=== PATIENT | male | born 1955 | race American Indian/Alaskan Native ===

== ENCOUNTER 2017-03-23 07:36 | Emergency (ER) | payer BC ==
[2017-03-23 08:38] LABS: Basophils % (Auto) 0.4 % (0.0-1.8); Eosinophils % (Auto) 1.2 % (0.0-4.3); Hematocrit 36.4 % (35.5-45.6); Hemoglobin 11.4 gm/dl (11.8-15.2); Mean Corpuscular HGB Conc 31 % (32-34); Mean Corpuscular Volume 78 fl (84-94); Platelet Count 208 K/mm3 (140-440); Red Blood Count 4.69 M/mm3 (3.65-5.03); Red Cell Distribution Width 15.8 % (13.2-15.2); White Blood Count 9.2 K/mm3 (4.5-11.0)
[2017-03-23 08:40] LABS: Mean Corpuscular Hemoglobin 24 pg (28-32)
[2017-03-23 08:46] LABS: Anion Gap 23 mmol/L; BUN/Creatinine Ratio 13.57; Blood Urea Nitrogen 19 mg/dL (9-20); Calcium 8.4 mg/dL (8.4-10.2); Carbon Dioxide 20 mmol/L (22-30); Chloride 99.2 mmol/L (98-107); Glucose 267 mg/dL (75-100); Potassium 3.4 mmol/L (3.6-5.0); Sodium 139 mmol/L (137-145)
[2017-03-23] MEDS ORDERED: NACL 0.9% 1000 ML 1,000 ML IV ONE (11:18)
[2017-03-23] MEDS ORDERED: K-DUR PO ONE (11:19)
[2017-03-23] MEDS ORDERED: TORADOL IV ONE (11:22)
[2017-03-23] MEDS ORDERED: ULTRAM PO ONE (11:22)
[2017-03-23] MEDS ORDERED: FLEXERIL PO ONE (11:33)
--- NOTE | 2017-03-23 11:34 | Emergency Department Report ---
ED Dizziness HPI - General Chief Complaint: Dizziness Stated Complaint: LBS Time Seen by Provider: 03/23/17 11:11 Source: patient Mode of arrival: Wheelchair Limitations: No Limitations - History of Present Illness Initial Comments: 61-year-old male with a past medical history hypertension and non-insulin- dependent diabetes presents to the hospital complains of dizziness and back pain. Patient has had intermittent lower back pain for the last week. He has recently been outside trying to cut down a falling tree for the past week. Pain aching, is in the lower back, moderate, worse with movement. Taken ibuprofen and muscle relaxant with partial relief. Denies any weakness, numbness, or urinary incontinence. Patient woke up at 6 AM complaining of lightheadedness with standing. Patient states he has been eating and drinking appropriately and denies nausea, vomiting, diarrhea, melena, hematochezia, headache, chest pain, or shortness of breath. He's been compliant with his lisinopril/hydrochlorothiazide, metformin, and glipizide. PMD: [facility]. - Related Data Home Medications Medication Instructions Recorded Confirmed Last Taken Lisinopril/Hydrochlorothiazide 1 tab PO DAILY 03/23/17 03/23/17 03/21/17 Previous Rx's Medication Instructions Recorded Last Taken Type Ibuprofen [Motrin] 800 mg PO Q8HR PRN #30 tablet 03/23/17 Unknown Rx Metaxalone [Skelaxin] 800 mg PO TID PRN #20 tab 03/23/17 Unknown Rx Potassium Chloride [K-Dur] 20 meq PO QDAY #3 tablet 03/23/17 Unknown Rx traMADol [Ultram 50 MG tab] 50 mg PO Q6HR PRN #20 tablet 03/23/17 Unknown Rx Allergies Allergy/AdvReac Type Severity Reaction Status Date / Time No Known Allergies Allergy Verified 03/23/17 07:54 ED Review of Systems ROS: Stated complaint: LBS Other details as noted in HPI Comment: All other systems reviewed and negative Other: Constitutional: No fevers chills Eyes: No eye pain visual changes ENT: No ear pain or throat pain Neck: Denies pain Respiratory: Denies cough wheezing shortness of breath Cardiovascular: Denies chest pain, palpitations, syncope GI: Denies abdominal pain, nausea, vomiting, diarrhea : Denies dysuria, urinary frequency, or urgency Musculoskeletal: Per HPI Skin: Denies rash, lesions, erythema Neurologic: Denies headache, numbness, weakness Psychiatric: Denies suicidal ideation, hallucinations ED Past Medical Hx - Past Medical History Hx Diabetes: Yes Additional medical history: recent back injury - Surgical History Additional Surgical History: left shoulder surgery. laparoscopy - Social History Smoking Status: Never Smoker Substance Use Type: Alcohol - Medications Home Medications: Home Medications Medication Instructions Recorded Confirmed Last Taken Type Ibuprofen [Motrin] 800 mg PO Q8HR PRN #30 tablet 03/23/17 Unknown Rx Lisinopril/Hydrochlorothiazide 1 tab PO DAILY 03/23/17 03/23/17 03/21/17 History Metaxalone [Skelaxin] 800 mg PO TID PRN #20 tab 03/23/17 Unknown Rx Potassium Chloride [K-Dur] 20 meq PO QDAY #3 tablet 03/23/17 Unknown Rx traMADol [Ultram 50 MG tab] 50 mg PO Q6HR PRN #20 tablet 03/23/17 Unknown Rx ED Physical Exam - General Limitations: No Limitations - Other Other exam information: General: No limitations, patient is alert in no acute distress Head exam: Atraumatic, normocephalic Eyes exam: Normal appearance ENT: Dry mucous membrane Neck exam: Normal inspection, full range of motion, no meningismus nontender Respiratory exam: Clear to auscultation bilateral, no wheezes, rales, crackles Cardiovascular: Normal rate and rhythm, normal heart sounds Abdomen: Soft, nondistended, and nontender, with normal bowel sounds, no rebound, or guarding Extremity: Full range of motion normal inspection no deformity Back: Normal Inspection, full range of motion, lower lumbar tenderness is at the lumbar sacral area bilateral paraspinal muscles. No midline tenderness Neurologic: Alert, oriented x3, cranial nerves intact, no motor or sensory deficit Psychiatric: normal affect, normal mood Skin: Warm, dry, intact ED Course Vital Signs 03/23/17 03/23/17 07:57 11:31 Temperature 97.4 F L Pulse Rate 100 H Pulse Rate [ 90 Lying] Pulse Rate [ 91 H Sitting] Pulse Rate [ 95 H Standing] Respiratory 17 Rate Blood Pressure 171/84 Blood Pressure 115/70 [Lying] Blood Pressure 117/71 [Sitting] Blood Pressure 112/69 [Standing] O2 Sat by Pulse 95 Oximetry - Reevaluation(s) Reevaluation #1: 06/11/17 13:17 Patient reports feeling better after IV hydration. Also received by mouth potassium, tramadol, Toradol, and Flexeril for pain. ED Medical Decision Making - Lab Data Result diagrams: 03/23/17 08:04 03/23/17 08:04 Lab Results 03/23/17 03/23/17 03/23/17 Range/Units 07:37 08:04 08:04 WBC 9.2 (4.5-11.0) K/mm3 RBC 4.69 (3.65-5.03) M/mm3 Hgb 11.4 L (11.8-15.2) gm/dl Hct 36.4 (35.5-45.6) % MCV 78 L (84-94) fl MCH 24 L (28-32) pg MCHC 31 L (32-34) % RDW 15.8 H (13.2-15.2) % Plt Count 208 (140-440) K/mm3 Lymph % (Auto) 25.9 (13.4-35.0) % [place] % (Auto) 7.3 (0.0-7.3) % Eos % (Auto) 1.2 (0.0-4.3) % Baso % (Auto) 0.4 (0.0-1.8) % Lymph # 2.4 (1.2-5.4) K/mm3 [place] # 0.7 (0.0-0.8) K/mm3 Eos # 0.1 (0.0-0.4) K/mm3 Baso # 0.0 (0.0-0.1) K/mm3 Seg Neutrophils % 65.2 (40.0-70.0) % Seg Neutrophils # 6.0 (1.8-7.7) K/mm3 Sodium 139 (137-145) mmol/L Potassium 3.4 L (3.6-5.0) mmol/L Chloride 99.2 (98-107) mmol/L Carbon Dioxide 20 L (22-30) mmol/L Anion Gap 23 mmol/L BUN 19 (9-20) mg/dL Creatinine 1.4 (0.8-1.5) mg/dL Estimated GFR > 60 ml/min BUN/Creatinine Ratio 13.57 % Glucose 267 H (75-100) mg/dL POC Glucose 219 H (70-105) Calcium 8.4 (8.4-10.2) mg/dL Magnesium (1.7-2.3) mg/dL Troponin T < 0.010 (0.00-0.029) ng/mL Urine Color (Yellow) Urine Turbidity (Clear) Urine pH (5.0-7.0) Ur Specific [place] (1.003-1.030) Urine Protein (Negative) mg/dL Urine Glucose (UA) (Negative) mg/dL Urine Ketones (Negative) mg/dL Urine Blood (Negative) Urine Nitrite (Negative) Urine Bilirubin (Negative) Urine Urobilinogen (<2.0) mg/dL Ur Leukocyte Esterase (Negative) Urine WBC (Auto) (0.0-6.0) /HPF Urine RBC (Auto) (0.0-6.0) /HPF U Epithel Cells (Auto) (0-13.0) /HPF Urine Mucus /HPF 03/23/17 03/23/17 03/23/17 Range/Units 11:12 11:41 12:38 WBC (4.5-11.0) K/mm3 RBC (3.65-5.03) M/mm3 Hgb (11.8-15.2) gm/dl Hct (35.5-45.6) % MCV (84-94) fl MCH (28-32) pg MCHC (32-34) % RDW (13.2-15.2) % Plt Count (140-440) K/mm3 Lymph % (Auto) (13.4-35.0) % [place] % (Auto) (0.0-7.3) % Eos % (Auto) (0.0-4.3) % Baso % (Auto) (0.0-1.8) % Lymph # (1.2-5.4) K/mm3 [place] # (0.0-0.8) K/mm3 Eos # (0.0-0.4) K/mm3 Baso # (0.0-0.1) K/mm3 Seg Neutrophils % (40.0-70.0) % Seg Neutrophils # (1.8-7.7) K/mm3 Sodium (137-145) mmol/L Potassium (3.6-5.0) mmol/L Chloride (98-107) mmol/L Carbon Dioxide (22-30) mmol/L Anion Gap mmol/L BUN (9-20) mg/dL Creatinine (0.8-1.5) mg/dL Estimated GFR ml/min BUN/Creatinine Ratio % Glucose (75-100) mg/dL POC Glucose 219 H (70-105) Calcium (8.4-10.2) mg/dL Magnesium 1.90 (1.7-2.3) mg/dL Troponin T (0.00-0.029) ng/mL Urine Color Yellow (Yellow) Urine Turbidity Clear (Clear) Urine pH 5.0 (5.0-7.0) Ur Specific [place] 1.014 (1.003-1.030) Urine Protein 30 mg/dl (Negative) mg/dL Urine Glucose (UA) >=500 (Negative) mg/dL Urine Ketones Tr (Negative) mg/dL Urine Blood Neg (Negative) Urine Nitrite Neg (Negative) Urine Bilirubin Neg (Negative) Urine Urobilinogen < 2.0 (<2.0) mg/dL Ur Leukocyte Esterase Neg (Negative) Urine WBC (Auto) 1.0 (0.0-6.0) /HPF Urine RBC (Auto) 3.0 (0.0-6.0) /HPF U Epithel Cells (Auto) < 1.0 (0-13.0) /HPF Urine Mucus Few /HPF - EKG Data -: EKG Interpreted by Me (sinus rhythm rate 93 left atrial enlargement no ST elevation CT) - EKG Data When compared to previous EKG there are: previous EKG unavailable - Medical Decision Making Plan to discharge patient home. I suspect the lightheadedness is associated with dehydration due to increased outdoor activity in hot temperatures and the fact that patient is on a diarrhetic which is increases his risk for dehydration and allegedly abnormalities. His improving ED treatment. Patient will be discharged home. Patient refused insulin. - Differential Diagnosis dehydration, anemia, electrolyte abnormality, muscle strain Critical Care Time: No Critical care attestation.: If time is entered above; I have spent that time in minutes in the direct care of this critically ill patient, excluding procedure time. ED Disposition Clinical Impression: Dehydration, Light-headed feeling, Hypokalemia, Diabetes type 2, uncontrolled, Low back strain Disposition: DC- TO HOME OR SELFCARE Is pt being admited?: No Does the pt Need Aspirin: No Condition: Stable Instructions: Diabetes Mellitus Type 2 in Adults (ED), Dehydration (ED), Lightheadedness (ED), Hypokalemia (ED), Low Back Strain (ED) Additional Instructions: Take the medication as prescribed. Limit outdoor activity. When you are outside in hot weather make sure you drink plenty of fluids to stay hydrated. Follow-up with your doctor for further treatment and evaluation. Prescriptions: Ibuprofen [Motrin] 800 mg PO Q8HR PRN #30 tablet PRN Reason: Pain Metaxalone [Skelaxin] 800 mg PO TID PRN #20 tab PRN Reason: Muscle Spasm Potassium Chloride [K-Dur] 20 meq PO QDAY #3 tablet traMADol [Ultram 50 MG tab] 50 mg PO Q6HR PRN #20 tablet PRN Reason: Pain Referrals: PRIMARY CARE,MD [Primary Care Provider] - 3-5 Days Time of Disposition: 13:25
[2017-03-23 12:53] LABS: Bilirubin,Urine NEG (Negative); Blood,Urine NEG (Negative); Ketones,Urine TR mg/dL (Negative); Leukocyte Esterase,Urine NEG (Negative); Mucus,Urine FEW /HPF; Nitrite,Urine NEG (Negative); Urobilinogen,Urine < 2.0 mg/dL (<2.0)
[2017-03-23 13:50] VITALS: BP 136/80
== END 2017-03-23 13:54 | disposition home or self-care (01) ==
LOC: ED 07:36
DX: S39.012A Strain of muscle, fascia and tendon of lower back, initial encounter (principal); E86.0 Dehydration; E42 Marasmic kwashiorkor; E87.6 Hypokalemia; E11.9 Type 2 diabetes mellitus without complications; X58.XXXA Exposure to other specified factors, initial encounter; Y93.9 Activity, unspecified; Y92.9 Unspecified place or not applicable; Y99.9 Unspecified external cause status
CPT/HCPCS: 36415; 80048; 81001; 82962; 83735; 84484; 85025; 93005; 93010; 96361; 96374; 99284; J1885; J7030

== ENCOUNTER 2021-08-16 23:57 | Emergency (ER) | payer BC, MEDICAID ==
[2021-08-17 00:15] VITALS: BP 154/94
[2021-08-17] MEDS ORDERED: traMADol 50 MG TAB PO ONE (00:24)
[2021-08-17] MEDS ORDERED: LIDOCAINE (1%) 10 MG/1 ML VIAL 20 ML MDV INFILTRATI ONE (00:24)
[2021-08-17] MEDS ORDERED: TETANUS,DIPH,PERTUSS(ACELL) VACCINE 0.5 ML SYRINGE IM ONE (00:24)
--- NOTE | 2021-08-17 00:50 | Emergency Department Report ---
ED General Adult HPI - General Chief complaint: Wound/Laceration Stated complaint: LACERATION TO RIGHT KNEE Time Seen by Provider: 08/17/21 00:23 Source: patient Mode of arrival: Ambulatory Limitations: No Limitations - History of Present Illness Initial comments: Patient is a 65-year-old -[place] male who presents for right lateral knee laceration as he scraped his knee versus his truck door. States he attempted to stop bleeding with tissue at home and direct pressure had to put duct tape on his knee. Patient did drive self to ED tonight patient is amatory with steady gait, there is no numbness no tingling no deformity to his leg. Patient states pain is 4/10. Pain exacerbated by palpation and movement. There is no foreign body sensation gait is normal. Pt departed prior to repeat vital signs, - Related Data Home Medications Medication Instructions Recorded Confirmed Last Taken Lisinopril/Hydrochlorothiazide 1 tab PO DAILY 03/23/17 03/23/17 03/21/17 Previous Rx's Medication Instructions Recorded Last Taken Type Ibuprofen [Motrin] 800 mg PO Q8HR PRN #30 tablet 03/23/17 Unknown Rx Metaxalone [Skelaxin] 800 mg PO TID PRN #20 tab 03/23/17 Unknown Rx Potassium Chloride [K-Dur] 20 meq PO QDAY #3 tablet 03/23/17 Unknown Rx traMADoL [Ultram 50 MG tab] 50 mg PO Q6HR PRN #20 tablet 03/23/17 Unknown Rx Allergies Allergy/AdvReac Type Severity Reaction Status Date / Time No Known Allergies Allergy Verified 03/23/17 07:54 ED Review of Systems ROS: Stated complaint: LACERATION TO RIGHT KNEE Other details as noted in HPI Constitutional: denies: chills, fever Eyes: denies: eye pain, eye discharge, vision change ENT: denies: ear pain, throat pain Respiratory: denies: cough, shortness of breath, wheezing Cardiovascular: denies: chest pain, palpitations Endocrine: no symptoms reported Gastrointestinal: denies: abdominal pain, nausea, diarrhea Genitourinary: denies: urgency, dysuria Musculoskeletal: other (Right lateral knee laceration). denies: back pain, joint swelling, arthralgia Skin: other (Laceration as above). denies: rash, lesions Neurological: denies: headache, weakness, paresthesias Psychiatric: denies: anxiety, depression Hematological/Lymphatic: denies: easy bleeding, easy bruising ED Past Medical Hx - Past Medical History Previous Medical History?: Yes Hx Diabetes: Yes Additional medical history: recent back injury - Surgical History Past Surgical History?: Yes Additional Surgical History: left shoulder surgery. laparoscopy - Social History Smoking Status: Never Smoker Substance Use Type: Alcohol - Medications Home Medications: Home Medications Medication Instructions Recorded Confirmed Last Taken Type Ibuprofen [Motrin] 800 mg PO Q8HR PRN #30 tablet 03/23/17 Unknown Rx Lisinopril/Hydrochlorothiazide 1 tab PO DAILY 03/23/17 03/23/17 03/21/17 History Metaxalone [Skelaxin] 800 mg PO TID PRN #20 tab 03/23/17 Unknown Rx Potassium Chloride [K-Dur] 20 meq PO QDAY #3 tablet 03/23/17 Unknown Rx traMADoL [Ultram 50 MG tab] 50 mg PO Q6HR PRN #20 tablet 03/23/17 Unknown Rx ED Physical Exam - General Limitations: No Limitations General appearance: alert, in no apparent distress - Head Head exam: Present: normocephalic, normal inspection - Eye Eye exam: Present: normal appearance, PERRL, EOMI. Absent: conjunctival injection, nystagmus Pupils: Present: normal accommodation - ENT ENT exam: Present: mucous membranes moist - Neck Neck exam: Present: normal inspection, full ROM. Absent: tenderness - Respiratory Respiratory exam: Present: normal lung sounds bilaterally. Absent: respiratory distress, wheezes - Cardiovascular Cardiovascular Exam: Present: regular rate, normal rhythm, normal heart sounds. Absent: systolic murmur, diastolic murmur, rubs, gallop - GI/Abdominal GI/Abdominal exam: Present: soft, normal bowel sounds. Absent: distended, tenderness - Rectal Rectal exam: Present: deferred - Extremities Exam Extremities exam: Present: full ROM, tenderness. Absent: joint swelling - Expanded Lower Extremity Exam Right Knee exam: Present: full ROM, tenderness, laceration (2 inch laceration mild bleeding no nerve tendon or nerve damage, rom intact unrestricted ), full knee extension. Absent: swelling, abrasion, ecchymosis, deformity, crepidus, erythema, effusion, pain w/ pronation/supination, posterior draw sign, pain/laxity with valgus, pain/laxity with varus Lower Leg exam: Present: normal inspection, full ROM. Absent: tenderness Ankle exam: Present: normal inspection, full ROM. Absent: tenderness Foot/Toe exam: Present: normal inspection, full ROM. Absent: tenderness Neuro vascular tendon exam: Absent: pulse deficit, motor deficit, sensory deficit, tendon deficit Gait: Positive: observed and normal - Back Exam Back exam: Present: normal inspection, full ROM. Absent: tenderness - Neurological Exam Neurological exam: Present: alert, oriented X3, CN II-XII intact, normal gait. Absent: motor sensory deficit - Expanded Neurological Exam Expanded Patient oriented to: Present: person, place, time Speech: Present: fluid speech Motor strength exam: RLE: 5, LLE: 5 DTR: knee (R): 1+, knee (L): 1+ Best Eye Response ([place]): (4) open spontaneously Best Motor Response (Андрей): (6) obeys commands Best Verbal Response ([place]рей): (5) oriented [place] Total: 15 - Psychiatric Psychiatric exam: Present: normal affect, normal mood - Skin Skin exam: Present: warm, dry, normal color, other (laceration as above ). Absent: rash ED Course Vital Signs 08/17/21 00:12 Temperature 97.5 F L Pulse Rate 121 H Respiratory 18 Rate Blood Pressure 154/94 O2 Sat by Pulse 99 Oximetry - Laceration /Wound Repair Right Lateral Leg Wound Location: lower extremity (Right lateral knee 2 minutes laceration superficial) Wound Length (cm): 5 Wound's Depth, Shape: superficial Wound Explored: clean Irrigated w/ Saline (ccs): 50 Betadine Prep?: Yes Anesthesia: 1% Lidocaine Volume Anesthetic (ccs): 2 Wound Debrided: None require Wound Repaired With: sutures, Dermabond Suture Size/Type: 3:0, proline Number of Sutures: 2 (With Dermabond) Layer Closure?: No Progress: Right lateral knee laceration superficial 2 inches, site cleaned with Betadine solution, site anesthesia with 1% lidocaine x2 cc. Anesthesia is achieved. Laceration repaired with 3-0 Prolene times 2 sutures. And Dermabond x1 application. Edges well approximated all bleeding is controlled. Range of motion remains intact CMS remains intact patient tolerated procedure with minimal distress. Patient given wound care instructions follow-up instructions patient verbalized agreement and understanding with same. ED Medical Decision Making - Medical Decision Making Right knee laceration see procedure note. All bleeding is controlled. Patient given home care instructions. Including follow-up with PCP in 2 to 3 days for wound check. In 7 to 10 days for suture removal. Patient will be DC'd home in stable condition at this time. Critical care attestation.: If time is entered above; I have spent that time in minutes in the direct care of this critically ill patient, excluding procedure time. ED Disposition Clinical Impression: Laceration of right knee Qualifiers: Encounter type: initial encounter Qualified Code(s): S81.011A - Laceration without foreign body, right knee, initial encounter Disposition: 07 LEFT AWOL/ELOPED Is pt being admited?: No Does the pt Need Aspirin: No Condition: Stable Instructions: Laceration Care, Adult, Sutures, [place], or Adhesive Wound Closure Additional Instructions: Take all medications as prescribed, follow-up with your doctor in 2 days for wound check. In 7 to 10 days for suture removal. Return to emergency department should symptoms worsen. Referrals: DENA KOWALSKI MD [Staff Physician] - 3-5 Days Forms: Work/School Release Form(ED)
== END 2021-08-17 01:30 | disposition left against medical advice (07) ==
LOC: ED 23:57
DX: S81.011A Laceration without foreign body, right knee, initial encounter (principal); E11.9 Type 2 diabetes mellitus without complications; Z79.899 Other long term (current) drug therapy; Z72.89 Other problems related to lifestyle; W22.8XXA Striking against or struck by other objects, initial encounter; Y93.89 Activity, other specified; Y92.89 Other specified places as the place of occurrence of the external cause; Y99.8 Other external cause status
CPT/HCPCS: 90715; 99281